=== PATIENT | female | born 1965 | race Caucasian/White ===

== ENCOUNTER 2018-03-28 16:20 | Emergency (ER) | payer MEDICAID ==
[~2018-03-28] VITALS: Ht 177.8 cm; Wt 60.3 kg
--- NOTE | 2018-03-28 16:42 | NUR ---
RECEIVED A 52 Y/O FEMALE PT A WALK IN , C/O HEADADCHE, BUTTOCK LESIONS, AND ORAL THRUSH, PT PUT IN ROOM AWAITING MD.
--- NOTE | 2018-03-28 16:51 | NUR ---
PATIENT DISCHARGED TO HOME, RECEIVED PRESCRIPTION AND DISCHARGE INSTRUCTIONS. ALL BELONGINGS TAKEN.
== END 2018-03-28 16:54 | disposition home or self-care (01) ==
LOC: ER 16:21
DX: B20 Human immunodeficiency virus [HIV] disease (principal); B37.0 Candidal stomatitis; A49.02 Methicillin resistant Staphylococcus aureus infection, unspecified site; F17.200 Nicotine dependence, unspecified, uncomplicated; F11.10 Opioid abuse, uncomplicated; F12.10 Cannabis abuse, uncomplicated; F15.10 Other stimulant abuse, uncomplicated; Z59.0 Homelessness; Z88.8 Allergy status to other drugs, medicaments and biological substances; Z91.048 Other nonmedicinal substance allergy status; Z90.710 Acquired absence of both cervix and uterus; Z91.011 Allergy to milk products
CPT/HCPCS: A4663